=== PATIENT | male | born 1960 | race Caucasian/White ===

== ENCOUNTER 2021-03-18 09:35 | Inpatient (IN) | payer OTHER ==
[~2021-03-18] VITALS: Ht 165.1 cm; Wt 63.6 kg
[~2021-03-18 09:35] MED LIST: ASPIRIN EC81 MG PO; CLONIDINE HCL0.1 MG PO; NORVASC10 MG PO; PRAVACHOL40 MG PO; ZESTORETIC 20-251 EA PO
--- NOTE | 2021-03-18 18:03 | NUR ---
REPORT RECEIVED FROM ER NURSE AND PT. ARRIVED VIA STRETCHER. PT. ALERT AND ORIENTED. SLIGHT SLUR, HOWEVER PT. STATES IT IS NORMAL. LUNGS DIM. IN CABRERA AND BASES. HAND FOOD CONSULTANT WEAK ON RIGHT SIDE. RIGHT LEG WEAKNESS WITH DRIFT. IV SITE WNL AND FLUSHES WELL. PUPILS PERRLA. PT. REPORTS HE STOPPED TAKING LIPITOR AND HTN A FEW MONTHS AGO ON HIS OWN SINCE HE HAD LOST 40LBS. DISCUSSED SAFETY, MEDS AND CVA SYMPTOMS. PT. LEFT RESTING WITH CALL LIGHT IN REACH.
--- NOTE | 2021-03-18 20:13 | EKG ---
[facility] [address] [place], [place] [address] Signed Sinus rhythm with premature supraventricular complexes Nonspecific T wave abnormality Abnormal ECG No previous ECGs available Confirmed by RAJIV PETERS MD ([id number]) on 03/18/2021 8:13:07 PM Electronically Signed By: RAJIV PETERS MD 03/18/212012 PATIENT NAME: GREGOR TINOCO Electrocardiogram DATE OF : 62 PHYSICIAN: RAJIV PETERS MD REPORT #: [id number] REPORT IS CONFIDENTIAL AND NOT TO BE RELEASED WITHOUT AUTHORIZATION
--- NOTE | 2021-03-18 20:30 | NUR ---
Pt very irritable " This place sucks, its a bitch, Ibeen hungry all day and you have not feed me". That is not going to be enough, its not a proper meal" referring to sandwich box, jello, puding, crackers and apple sauce given to him. "this is not a real meal, you are going to starve me to ". this is f....ng wrong, thats too tight, you need a proper bp machine," stated while trying to get bp, non coop, even tried to do a manual bp. not coop, moving arms and leg when trying to get bp in different place. final reading was 200/118, p75, r18. Pt angry, irritable, unable to complete assessment. took schedule med. On phone c/o to relatives on the other side that "We are starving him to , he has not eaten and we are not feeding him". Dr Braswell notified of above and that I would go and recheck his bp again after pt completes eating. "ok, this is a recurrent problem, he is non compliant, cont to instruct pt, and recheck as able"
--- NOTE | 2021-03-18 20:51 | NUR ---
pts daughter Maryann [phone] here to see pt, pt ok to give updates, updates given to her. states that she is going camping tomorroew and if he is not going to be dc early, to let her know so shecan make arrangements for someone to pick him up when dc. family aware of pt needding to get bp recheck, pt denies any s/sx of hypertension. eating Jello, will recheck at 2200
--- NOTE | 2021-03-19 00:25 | NUR ---
[place] precautions in place, on room air, eyes closed, no distress, ivf infusing, call light and fluids at bedside
--- NOTE | 2021-03-19 03:10 | NUR ---
awakes easily, on room air, ivf infusing, goes back to sleep, no void since earlier on shift, pt was resting til woken up. no c/o pain or CP, no SOB, tele#[address] SV Rhythm as per tele . call light and fluids at bedside
--- NOTE | 2021-03-19 06:01 | NUR ---
Pt was very irritable at begining of hift, ate 1/2 of sandwich box, tolerated soda pop well, no emesis, sips of water. fresh water given at this time. On room air. lungs dim at bases, pt is a daily smoker. no edema. IVF infusing w/o problems LAC. semi coop with assessments and blood draws, but much better affect this am. Light R sided residual deficit noted. Received Hydralazine earlier on shift due to elevated SBP of 184, Dr Braswell was notified earlier on shift as pt was not very coop while taking BP, calmer after 2129, and BP was rechecked. SBP 167/94 at this time. Has not voided. urinal at bedside, abd no distention, denies needing to void at this time. will recheck prior to ending of shift. On negative pressure room as pt declined to be Covid tested. no couah. semi coop with blood draws. Procedure explained. sample sent to lab Fall precautions in place. no aspiration problems noted.
--- NOTE | 2021-03-19 07:19 | NUR ---
Pt has voided, uses bsc. DI staff in room doing ECHO, pt irritable. will measure urine after echo completed
--- NOTE | 2021-03-19 09:48 | NUR ---
REPORT RECEIVED FROM NIGHT RN AND PT. CARE RESUMED. PT. IS ALERT AND ORIENTED. MILD RIGHT-SIDED WEAKNESS IN HAND COMPUTER APPLICATIONS ENGINEER AND FOOT PUSH. PUPILS PERRLA. IV SITE WNL AND FLUSHES WELL. LUNGS DIM. IN BASES. PT. VOIDED 200ML AT 0700, BUT BOARD FINISHER REPORTS OUTPUT HAS BEEN MARGINAL OTHERWISE. PT. ENCOURAGED TO DRINK MORE FLUIDS AND ONLY WANTS SODA. DISCUSSED POC, MRI AND MEDS. PT. LEFT RESTING WITH CALL LIGHT IN REACH.
--- NOTE | 2021-03-19 10:18 | NUR ---
MED REC COMPLETE
--- NOTE | 2021-03-19 10:30 | NUR ---
DISCUSSED PATIENT NEED FOR PCP AND POSSIBLE NEED FOR REHAB PLACEMENT PENDING PT/OT EVALUATION AND MRI WITH DR. PETERS. ATTEMPTED TO SEE PATIENT FOR CASE MANAGEMENT ASSESSMENT. PATIENT CURRENTLY WORKING WITH PT AND OT. WILL RETURN TO COMPLETE ASSESSMENT WHEN PATIENT IS FINISHED WITH THERAPIES.
--- NOTE | 2021-03-19 12:45 | NUR ---
INTO ROOM TO COMPLETE CASE MANAGEMENT ASSESSMENT. PATIENT LAYING IN BED WATCHING TV. ASSESSMENT COMPLETE. DISCUSSED WITH PATIENT HIS NEED TO ESTABLISH WITH A LOCAL PCP FOR MEDICATION MANAGEMENT AND FURTHER WORKUP ONCE DISCHARGED. PATIENT AGREES TO ESTABLISH WITH [facility]. DISCUSSED PATIENT ONGOING NEED FOR PT AND POSSIBLE DISCHARGE TO REHAB. PATIENT DECLINES DISCHARGE PLACEMENT AT THIS TIME. ATTEMPTED TO DISCUSS POSSIBLE OUTPATIENT PT, PATIENT STOPPING ME STATING "I JUST WANT TO GO HOME FOR A WHILE BEFORE I DO ANYTHING." I URGED PATIENT TO CONSIDER REHAB OPTIONS, PATIENT AGREES. CLOVER GALLO UPDATED. CHART NOTES FAXED TO [facility], WILL SCHEDULE PATIENT WHEN DISCHARGE DATE IS ESTABLISHED.
--- NOTE | 2021-03-19 13:18 | NUR ---
ORDERED PATIENT'S BREAKFAST AND LUNCH. PATIENT IS NOW GETTING AN MRI DONE.
--- NOTE | 2021-03-19 14:25 | NUR ---
PT. USED CALL LIGHT TO REQUEST ASSISTANCE WITH A SHOWER. THIS NURSE ANSWERED AND TOLD HIM WE WOULD HAVE TO HELP HIM SET UP FOR A SHOWER DUE TO COORDINATION ISSUES. PT. BECAME UPSET AND INSISTED HE GO TO THE SHOWER BY HIMSELF. PT. REFUSED TO SIT AND STATED HE WOULD WALK AROUND THE ROOM BY HIMSELF. THIS NURSE STAYED WITH PATIENT UNTIL HE WAS SEATED AGAIN. HE REFUSED TO WEAR TELEMETRY AND TO HAVE IVF CONNECTED. NOTIFIED.
[2021-03-19] MEDS ORDERED: ATORVASTATIN CA20 MG PO (16:12)
[2021-03-19] MEDS ORDERED: CLONIDINE HCL0.1 MG PO (16:12)
[2021-03-19] MEDS ORDERED: LO-DOSE ASPIRIN81 MG PO (16:12)
[2021-03-19] MEDS ORDERED: AMLODIPINE BESYL5 MG PO (16:12)
--- NOTE | 2021-03-19 16:44 | NUR ---
PT.'S 1625 VITALS SHOWED SYSTOLIC BP OF 183. RECHECKED AND IS NOW 167. NO PRN BP MEDS GIVEN. WILL CONTINUE TO MONITOR
--- NOTE | 2021-03-19 20:16 | NUR ---
Pt states that he needs a sleeping pill tonight as he could not sleep last night as he got woken up during the night and could not go back to sleep. Asked about letting us do a covid test "No I told you yesterday I did not wanted it, I do not want it today, so NO!" irritable mood. Dr chambers notified of pts requests, order for Melatonin 3mg HS/PRN obtained, and clarification that the covid test is the one ordered in ED which pt still declines. Pt continues on Airborne precautions due to declining covid test. Eyes closed. no resp distress, tele#[address], SV Rhythm at this time, denies CP or SOB. informed of Bed alarm purpuse high fall risk precautions, " YOU just want to control everything dont you?, not very receptive. continue to praise efforts and reassure safety.
--- NOTE | 2021-03-19 21:07 | NUR ---
Pt very upset, " I keep calling you and calling you and nobody answers. (Call light had just gone off and FELTMAKER AND WEIGHER responded on second ring) I need my sleeping pill and you said that you were going to get me one", not very receptive to information. Pt disconnected IVF from extendion tubing. had dripped blood and was standing by toilet, urinating. SL flushed. clean new tubing and IVF started on return to bed, Unsteadiness and R sided weakness noted. Coop with assessment except for NIH assessment. "why do you have to do, its the same whether is you or the oher girl who does not even smile". procedure explained, not very receptive, verbally inappropriate and irritable mood, redirected. SBP 186, medicated with hydralazine 10mg IV, IVF restarted with new tubing and new IVF bag, Melatonin for insomnis a new order given, and fresh water and ice, "I do not like water, drinking small cans of soda, aware of 2Gr NA diet". Repositions slef in bed. On room air, Luns dim at bases, IV site LFA patent. call lihgt at bedside, Bed alarm on for fall precautions
--- NOTE | 2021-03-20 00:47 | NUR ---
Bed alarm going off, up to bsc, voided, tolerated well, back to bed, slight unsteadiness, IVF infusing. on room air, Received Melatonin earlier, c/o that "Im going to need another thing for sleep, I got woken up". repositioned in bed, went back to sleep. call light and fluids t bedside
--- NOTE | 2021-03-20 02:30 | NUR ---
bed alarm gong off, pt standing up to use bsc, voided, back to bed, IVF infusing, on room air, Cont to declines covid testing, closed eyes, no resp distress, tele#[address], sinus diallo at this time low 50's call light and fluids at bedside.
--- NOTE | 2021-03-20 05:48 | NUR ---
Awakes easily, on room air, coop with assessment and blood draws, no c/o lightheadness, h/a or CP, no sob. IVF stopped at this time, as "Is bothering my arm, will notify md". tele#[address] SV rhythm
--- NOTE | 2021-03-20 06:19 | NUR ---
dr chambers notified of pts asking to have his IV SL. "yes, thats fine" pt notified
--- NOTE | 2021-03-20 06:35 | NUR ---
Pt has slept most of this shift, does waken up easily when checking on room. Received Melatonis per insomnia, effective. Irritable, angry and semicompliant with instructions kind of mood at begining of shift. much calmer at this time. On room air, dim at bases. Tele#[address], SV rhythm to diallo (down to 40bpm) to SR, denies CP or SOB. Has voided QS, only has had 2 sodas as intake. IVF infused, SL at this time. MD aware and new order obtained. SBA, R sided residual weakness noted. Bed alarm on for fall safety. COntinues on Airborne precautions, declines to do covid testing.
--- NOTE | 2021-03-20 07:45 | NUR ---
REPORT RECEIVED FROM NIGHT RN AND PT. CARE RESUMED. PT. IS DROWSY BUT EASILY AROUSED AND ORIENTED. WHEN ASKED HOW HE FELT STATES "I WANT TO FUCKING LEAVE". OTHERWISE PLEASANT. LUNGS DIM. IN LLL. IV SITE WNL AND S.L. NO CHANGE TO RIGHT LIMB DEFICITS. PT. IS AMBULATING WITH FWW AND SBA AND IS NOT WELL COORDINATED. DISCUSSED POC AND MEDS. PT. LEFT RESTING WITH CALL LIGHT IN REACH.
--- NOTE | 2021-03-20 09:14 | NUR ---
PATIENT REMOVED HIS OWN TELEMETRY, CHECKED ON PATIENT. PATIENT IS FULLY DRESSED AND BRUSHING TEETH. ASKED PATIENT, CAN WE PUT YOUR TELE BACK ON?" PATIENT REPLIED, "NO, I'M GOING HOME TODAY, SO NO." LEFT MESSAGE IN CCU TO NOTIFY DR. PETERS OF PATIENT'S CURRENT STATUS. PRIMARY NURSE, CLOVER, NOTIFIED WELL.
--- NOTE | 2021-03-20 10:00 | NUR ---
JORJE PAPERWORK REVIEWED WITH PATIENT AND ALL QUESTIONS ANSWERED. IV REMOVED WITH CATH. INTACT. PT. LEFT WITH ALL BELONGINGS VIA WHEELCHAIR AND RN. PICKED UP BY SISTER.
== END 2021-03-20 10:00 | disposition left against medical advice (07) | DRG 65 ==
LOC: ED 09:35 → MS 09:37
PROVIDERS: ADMIT Internal Medicine; ATTEND Internal Medicine
DX: I63.81 Other cerebral infarction due to occlusion or stenosis of small artery (principal); G81.91 Hemiplegia, unspecified affecting right dominant side; I47.2 Ventricular tachycardia; I16.1 Hypertensive emergency; Q21.1 Atrial septal defect; I10 Essential (primary) hypertension; F17.210 Nicotine dependence, cigarettes, uncomplicated; R29.2 Abnormal reflex; E78.5 Hyperlipidemia, unspecified; Z53.29 Procedure and treatment not carried out because of patient's decision for other reasons; Z86.73 Personal history of transient ischemic attack (TIA), and cerebral infarction without residual deficits; Z91.14 Patient's other noncompliance with medication regimen; Z79.01 Long term (current) use of anticoagulants; Z79.899 Other long term (current) drug therapy
CPT/HCPCS: 70450; 70551; 71045; 80048; 80053; 80061; 83735; 84100; 84484; 85025; 85610; 85651; 85730; 93005; 93010; 93306; 96374; 96376; 97163; 97165; 99285-25; G0378; J0360; J7030

== ENCOUNTER 2022-12-15 10:28 | Emergency (ER) | payer OTHER ==
[~2022-12-15] VITALS: Ht 165.1 cm; Wt 63.5 kg
[~2022-12-15 10:28] MED LIST changes: +AMLODIPINE BESYL5 MG PO; +ATORVASTATIN CA20 MG PO; +AUGMENTIN 500-1 EACH PO; +LO-DOSE ASPIRIN81 MG PO
[2022-12-15] MEDS ORDERED: AMLODIPINE BESY10 MG PO (11:33)
[2022-12-15] MEDS ORDERED: LISINOPRIL-HCT1 EAC1 PO (11:33)
[2022-12-15] MEDS ORDERED: CLEOCIN HCL300 MG PO (12:33)
--- NOTE | 2022-12-16 21:27 | EKG ---
[facility] [address] [place] [address] Signed Normal sinus rhythm Normal ECG When compared with ECG of 18-MAR-2021 10:39, premature supraventricular complexes are no longer present Nonspecific T wave abnormality no longer evident in Anterolateral leads Confirmed by BISMARK BRADLEY MD ([id number]) on 12/16/2022 9:27:44 PM Electronically Signed By: BISMARK BRADLEY MD 12/16/22 212 PATIENT NAME: GREGOR TINOCO BARTOLO Electrocardiogram DATE OF : 62 PHYSICIAN: BISMARK BRADLEY MD REPORT #: [id number] REPORT IS CONFIDENTIAL AND NOT TO BE RELEASED WITHOUT AUTHORIZATION
== END 2022-12-15 13:25 | disposition home or self-care (01) ==
LOC: ED 10:28
DX: L03.115 Cellulitis of right lower limb (principal); I10 Essential (primary) hypertension; F17.200 Nicotine dependence, unspecified, uncomplicated; Z79.899 Other long term (current) drug therapy; Z79.82 Long term (current) use of aspirin
CPT/HCPCS: 36415; 80053; 83605; 84484; 85025; 85730; 93005; 93010; 93971; 96374; 99284-25

== ENCOUNTER 2022-12-19 07:30 | Emergency (ER) | payer OTHER ==
[~2022-12-19] VITALS: Ht 165.1 cm; Wt 68.4 kg
[~2022-12-19 07:30] MED LIST changes: +AMLODIPINE BESY10 MG PO; +CLEOCIN HCL300 MG PO; +LISINOPRIL-HCT1 EAC1 PO
--- OUTSIDE RECORDS SUMMARY | 2022-12-19 07:38 | XMS ---
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 PHONE: [phone] [facility] Current PHONE: Unknown Josafat has no Care Guidelines for this patient. Dennis VISIT COUNT (12 MO.) 2 [facility] TOTAL 2 NOTE: Visits indicate total known visits. ED/UCC VISIT TRACKING (12 MO.) 12/19/2022 07:31 [facility] TYPE: Emergency COMPLAINT: - R LEG SWOLLEN/RED 12/15/2022 10:29 [facility] TYPE: Emergency COMPLAINT: - R LEG SWOLLEN/RED INPATIENT VISIT TRACKING (12 MO.) No inpatient visits to display in this time frame [email or web address]
[2022-12-19] MEDS ORDERED: CLEOCIN HCL300 MG PO (08:09)
== END 2022-12-19 08:15 | disposition home or self-care (01) ==
LOC: ED 07:30
DX: L03.115 Cellulitis of right lower limb (principal); I10 Essential (primary) hypertension; F17.200 Nicotine dependence, unspecified, uncomplicated; Z79.899 Other long term (current) drug therapy; Z79.82 Long term (current) use of aspirin
CPT/HCPCS: 99283

== ENCOUNTER 2023-02-04 10:59 | Emergency (ER) | payer OTHER ==
[~2023-02-04] VITALS: Ht 165.1 cm; Wt 67.8 kg
[2023-02-04] MEDS ORDERED: CEPHALEXIN500 M1 PO (13:26)
[2023-02-04 13:35] VITALS: BP 119/89
== END 2023-02-04 13:36 | disposition home or self-care (01) ==
LOC: ED 10:59
DX: L03.115 Cellulitis of right lower limb (principal); I10 Essential (primary) hypertension; F17.200 Nicotine dependence, unspecified, uncomplicated; Z79.899 Other long term (current) drug therapy; Z79.82 Long term (current) use of aspirin
CPT/HCPCS: 93971; 99283-25